=== PATIENT | male | born 1995 | race Caucasian/White ===

== ENCOUNTER 2017-08-11 14:44 | Inpatient (IN) | payer BC, OTHER ==
[~2017-08-11] VITALS: Ht 193 cm; Wt 86.2 kg
[2017-08-11] MEDS ORDERED: diphenhydrAMINE 50 MG CAPSULE PO PRN (16:30)
[2017-08-11] MEDS ORDERED: MIRALAX 17 GM POWD.PACK PO PRN (16:30)
[2017-08-11] MEDS ORDERED: DICYCLOMINE HCL 20 MG TABLET PO PRN (16:30)
[2017-08-11] MEDS ORDERED: LORAZEPAM 2 MG/1 ML VIAL IM PRN (16:30)
[2017-08-11] MEDS ORDERED: ONDANSETRON ODT 4 MG TAB.RAPDIS SL PRN (16:30)
[2017-08-11] MEDS ORDERED: THIAMINE HCL 200 MG/2 ML VIAL IM ONE (16:30)
[2017-08-11] MEDS ORDERED: LORAZEPAM 1 MG TABLET PO PRN ×2 (16:30)
[2017-08-11] MEDS ORDERED: ONDANSETRON 4 MG/2 ML VIAL IM PRN (16:30)
[2017-08-11] MEDS ORDERED: MAG HYDROX/AL HYDROX/SIMETH 30 ML LIQUID UDC PO PRN (16:30)
[2017-08-11] MEDS ORDERED: BUPRENORPHINE HCL 2 MG TAB.SUBL SL PRN (16:30)
--- NOTE | 2017-08-11 16:30 | NUR ---
INTAKE ASSESSMENT Received patient in intake. He is AOX4, stable, and ambulatory. Vital signs WNL. Patient reports NKA. Patient reported he had an episode of blackout last night from drinking too much. Patient brought home medications with him. Explained unit protocols and patient verbalized understanding. Will admit patient upon admission to third floor.
[2017-08-11 16:50] VITALS: BP 145/85
--- NOTE | 2017-08-11 17:00 | NUR ---
ADMISSION NOTE Allergy- NKA/NKFA Status-Full code Height 6'4" Weight-190 lb PCP-UNABLE TO RECALL THE NAME Vital Signs- B/P-145/85,HR-112, R-18, TEMP-98.0, SPO2-98%, Pain 0/10 CIWA-4 Patient is a 22 year old male admitted to [facility] to detox center for BENZO/HEROIN/METH dependence under the care of Dr. Martinez. Patient able to provide urine.Thorough body and belonging check done by SPINDLE CARVER. Patient appears anxious and agitated. Patient is cooperative during nursing assessment. Upon admission patient is noted to have a flat affect, appears intoxicated, but cooperative with the admission process. Patient denies chest pain or SOB. Lung sounds clear with no cough noted. Bowel sounds present in all 4 quadrants. BUE and BLE noted WNL with no edema present. Skin check done with no significant findings. Pt reported PMH of anxiety and depression, Insomnia, Bipolar. Pt refused PNA/FLU vaccine. He brought in home medications. Patient denies SI/HI. Pt is AOx4. Patient reports 3 months of sobriety from March 2017 to May 2017. Pt's current s/s of withdrawal are anxiety, agitation. Patient reported substance abuse history as: 1.ETOH( VODKA/WIN SHANNAN)Pt reported drinking 750ml PO daily for past 8 years. Last drink was 750ml PO on 08/10/17 at 2200. 2.HEROIN- Patient reported using 1 to 2 gm daily for the past 1 year.Last used 1GM 08/11/17 at 0700. 3.METH-Patient reported snorting unspecified amount for past 1 year,last used was one line at 08/11/17. Educated patient regarding unit policies and protocols, patient verbalized understanding. Patient oriented to unit by SPINDLE CARVER. Fall and seizure precautions in place. Safety measures in place, Call light within reach. Will cont to monitor. Addendum: 08/11/17 at 1829 abdirashid BOWSER LVN HEROIN CLARICE IV
[2017-08-11] MEDS ORDERED: QUET100T PO (17:19)
[2017-08-11] MEDS ORDERED: QUET300T2 PO (17:19)
[2017-08-11] MEDS ORDERED: OLAN10TA3 PO (17:19)
[2017-08-11] MEDS ORDERED: SERT100T12 PO (17:19)
[2017-08-11] MEDS ORDERED: TRAZ-147 PO (17:19)
[2017-08-11] MEDS ORDERED: TRAZ-144 PO (17:19)
[2017-08-11] MEDS ORDERED: PROP20TA22 PO (17:19)
[2017-08-11] MEDS ORDERED: OLAN5TAB3 PO (17:19)
[2017-08-11 17:33] LABS: *AMPHETAMINE, URINE NEGATIVE (NEGATIVE); *BARBITURATE, URINE NEGATIVE (NEGATIVE); *CANNABINOID, URINE NEGATIVE (NEGATIVE); *COCCAINE, URINE NEGATIVE (NEGATIVE); *OPIATE, URINE POSITIVE (NEGATIVE); *PHENCYCLIDINE SCREEN,URINE NEGATIVE (NEGATIVE)
[2017-08-11] MEDS: METHOCARBAMOL 750 MG TABLET PO PRN (18:32)
[2017-08-11] MEDS: IBUPROFEN 600 MG TABLET PO PRN (18:32)
--- NOTE | 2017-08-11 18:32 | NUR ---
PRN MOTRIN/ROBAXIN Patient c/o of body ache 5/10 and myalgia. PRN Motrin 600mg Po, Robaxin 750mg Po given as ordered. Will cont to monitor and reassess the pt.
--- NOTE | 2017-08-11 18:58 | NUR ---
START OF SHIFT NOTE: 22 year old male presented in [facility] for Alcohol: "Vodka and Whisky", Opioid: "Heroin via IV", and Methamphetamine dependence. Patient remains compliant with PRN medications and diet regime per day shift nurse's report. Patient reports NKA , is on Regular diet, Full Code, Fall and Seizures Precautions. Patient denies history of seizures. PMH: Anxiety, Depression, Insomnia, and Bipolar disorder. Upon endorsement patient is alert and oriented x4. COWS 5, CIWA 7. Patient c/o anxiety, agitation, depression, nervousness, restlessness, sweating, and tremors that can be felt. VSWNL. Respirations are unlabored and even. Lungs Sounds are clear throughout. Patient denies cough, SOB and chest pain. Heart rate is regular. Abdomen is soft and non-tender. Bowel Sounds are active in all four quadrants. Skin is intact, warm and dry to touch. Encouraged fluids as tolerated. Safety measures in place: Call light within reach, bed is locked and lowest positions, padded bed rails up x2. Patient endorsed by day shift nurse. Report received. Will continue to monitor closely.
--- NOTE | 2017-08-11 18:58 | NUR ---
END OF SHIFT NOTE Patient newly admitted for ETOH/HEROIN/METH dependence. During shift pt presented with body aches and myalgia, pt was given PRN Robaxin and Motrin endorsed to night nurse to reassess the pt. Vital signs WNL. Encourage Po fluids as tolerated. Pt medication compliant and tolerated well. Last CIWA score was 4. All safety measures in place, call light within reach. Patient endorsed to night nurse in stable condition.
[2017-08-11 19:25] LABS: BASOPHILS % (AUTO) 0.6 % (0.0-2.0); EOSINOPHILS # (AUTO) 0.2 K/uL (0.0-0.7); EOSINOPHILS % (AUTO) 3.7 % (0.0-7.0); HEMATOCRIT 39.4 % (36.7-47.1); LYMPHOCYTES # (AUTO) 2.2 K/uL (20.0-40.0); LYMPHOCYTES % (AUTO) 32.9 % (20.5-51.5); MEAN CORPUSCULAR HGB CONC 35 g/dL (32.5-36.3); MEAN CORPUSCULAR VOLUME 87.6 fL (73.0-96.2); MONOCYTES # (AUTO) 0.6 K/uL (2.0-10.0); NEUTROPHILS # (AUTO) 3.5 K/uL (1.8-8.9); NEUTROPHILS % (AUTO) 53.8 % (38.5-71.5); PLATELET COUNT (AUTO) 276 K/uL (152-348); WHITE BLOOD COUNT (AUTO) 6.5 K/uL (3.6-10.2)
[2017-08-11 19:31] LABS: ALANINE AMINOTRANSFERASE 56 U/L (16-63); ALKALINE PHOSPHATASE 93 U/L (50-136); AMYLASE 45 U/L (25-115); ASPARTATE AMINOTRANSFERASE 32 U/L (15-37); BILIRUBIN,TOTAL 0.7 mg/dL (0.2-1.0); CARBON DIOXIDE 30 mmol/L (21-32); CHLORIDE 101 mmol/L (98-107); CREATININE 1.1 mg/dL (0.6-1.3); GLUCOSE 142 mg/dL (74-106); MAGNESIUM 1.8 mg/dL (1.8-2.4); TOTAL PROTEIN, SERUM 7.2 g/dL (6.4-8.2); UREA NITROGEN, BLOOD 8 mg/dL (7-18)
[2017-08-11 19:32] LABS: ETHANOL < 3 MG/DL (0-0)
--- NOTE | 2017-08-11 19:32 | NUR ---
RE-ASSESSMENT Patient is sleeping. RR 15. Respirations even and unlabored. PRN Motrin 600 mg 1 tab PO and PRN Robaxin 750 mg 1 tab PO administrated @1832 by day shift nurse were effective. All needs met. Safety measures on place. Call light within reach, bed in lowest position and locked, padded rails up bilaterally rails up bilaterally. Will continue to monitor closely.
[2017-08-11] MEDS: LORAZEPAM 1 MG TABLET PO SCH ×2 (19:46→22:26)
[2017-08-11 20:00] VITALS: BP 123/67
[2017-08-11] MEDS ORDERED: LORAZEPAM 1 MG TABLET ONE ×3 (20:01→22:38)
[2017-08-11] MEDS ORDERED: POTASSIUM CHLORIDE 20 MEQ TAB.PRT.SR PO ONE (20:15)
[2017-08-11] MEDS: GABAPENTIN 300 MG CAPSULE PO SCH (20:24)
--- NOTE | 2017-08-11 20:24 | NUR ---
J-DUR 40 MEQ 2 TAB PO ADMINISTRATED FOR POTASSIUM LEVEL 3.0 ORDERED. Addendum: 08/13/17 at 2126 by TIMOTHY MILLER RN LILIAN
[2017-08-11] MEDS ORDERED: POTASSIUM CHLORIDE 20 MEQ TAB.PRT.SR ONE (20:32)
[2017-08-11] MEDS ORDERED: GABAPENTIN 300 MG CAPSULE ONE (20:32)
[2017-08-11] MEDS ORDERED: QUETIAPINE FUMARATE 200 MG TABLET PO ONE (22:30)
[2017-08-11] MEDS ORDERED: QUETIAPINE FUMARATE 200 MG TABLET ONE (22:40)
--- NOTE | 2017-08-11 22:41 | NUR ---
SEROQUEL 200 MG 1 TAB PO ADMINISTRATED ONCE ORDERED. PATIENT TOLERATED WELL. ALL NEEDS MET. SAFETY MEASURES IN PLACE. CALL LIGHT WITHIN REACH, BED IN THE LOWEST POSITION, AND LOCKED, PADDED BED RAILS UP X2. WILL TO CONTINUE TO MONITOR CLOSELY.
--- NOTE | 2017-08-11 23:41 | NUR ---
RE-ASSESSMENT PATIENT IS SLEEPING. SEROQUEL 200 MG 1 TAB PO ADMINISTRATED @2241 FOR INSOMNIA WAS EFFECTIVE. ALL NEEDS MET. SAFETY MEASURES IN PLACE. WILL TO MONITOR CLOSELY.
[2017-08-12] VITALS (7 sets, daily range): BP systolic 134–151; BP diastolic 65–96
--- NOTE | 2017-08-12 07:04 | NUR ---
END OF SHIFT NOTE: Endorsed 22 year old male presented for Alcohol, Opioid, and Methamphetamine dependence, placed on 5 day Ativan and 5 Day Subutex taper: First dosage will today, on 08/12/2017 @0900. Patient remains compliant with treatment, medications and diet regime. Patient reports NKA. Patient is on Regular diet, Full Code, Fall and Seizures Precautions. Patient denies history of seizures. PMH: Anxiety, Depression, Insomnia, and Bipolar disorder. Upon endorsement patient is alert and oriented x4. Last COWS 7, CIWA 4 @0400. Patient presented with following signs of withdrawal: anxiety, agitation, nervousness, restlessness, tremors that can be felt, nasal stuff, sweating, restless legs, insomnia and fatigue. Patient denies SI/HI. Last VS @0400: T: 98.1, HR: 92, RR: 18 , RA O2SAT 98%, BP: 136/65, pain level: "0/10". Respirations unlabored and even. Patient denies cough, SOB and chest pain. Skin is intact, warm and dry to touch. No PRN administrated last softlines supervisor. Patient slept 10 hours, intake 300 ml, voided x1. Encouraged fluids intake as tolerated. Encouraged to attend groups activities. All needs met. Safety measures on place. Call light within reach, bed in lowest position and locked, bed rails up bilaterally. Patient endorsed to day shift nurse. Report given.
--- NOTE | 2017-08-12 07:55 | NUR ---
START OF SHIFT NOTE Received report from night nurse, 22 year old male admitted for ETOH/Heroin/Meth dependence. Patient has PMH of Anxiety, Depression, Insomnia, Bipolar. Per endorsement pt did not receive any PRN'S, slept for 10 hours, last CIWA-4, COWS-7. Patient received awake, alert and oriented x4. Patient was educated regarding plan of care for the day and medication regimen. Safety measures in place. Call light with in reach. Will continue to monitor.
[2017-08-12] MEDS: BUPRENORPHINE HCL 2 MG TAB.SUBL SL SCH ×3 (08:47→20:23)
[2017-08-12] MEDS: FOLIC ACID 1 MG TABLET PO SCH (08:47)
[2017-08-12] MEDS: LORAZEPAM 1 MG TABLET PO SCH ×3 (08:47→20:16)
[2017-08-12] MEDS: THIAMINE HCL 100 MG TABLET PO SCH (08:47)
[2017-08-12] MEDS: GABAPENTIN 300 MG CAPSULE PO SCH ×2 (08:47→20:16)
[2017-08-12] MEDS: CLONIDINE HCL 0.1 MG TABLET PO PRN ×2 (08:48→19:10)
--- NOTE | 2017-08-12 08:48 | NUR ---
PRN CLONIDINE Patient noted with high blood pressure 151/96, PRN Clonidine 0.1mg Po given as ordered. Will cont to monitor and reassess.
[2017-08-12] MEDS: MULTIVITAMINS,THERAPEUTIC TABLET PO SCH (08:52)
[2017-08-12] MEDS ORDERED: TUBERCULIN,PURIF.PROT.DERIV. 5 TU/0.1 ML TEST ID ONE (09:00)
--- NOTE | 2017-08-12 09:00 | NUR ---
NEW ORDER patient was seen and evaluated by Psychiatrist with new order of Zyprexa 5mg PO and Zoloft 100mg PO. medication was administered as ordered. Patient tolerated well.
[2017-08-12] MEDS: SERTRALINE HCL 100 MG TABLET PO SCH (09:07)
[2017-08-12] MEDS: OLANZAPINE 5 MG TABLET PO SCH ×2 (09:07→16:07)
[2017-08-12] MEDS: NICOTINE POLACRILEX 4 MG GUM-PK OF TEN BC PRN (09:42)
--- NOTE | 2017-08-12 09:42 | NUR ---
PRN NICOTINE GUM Patient reported having Nicotine craving, PRN Nicotine gum 4mg Po given as ordered. Will cont to monitor and reassess.
--- NOTE | 2017-08-12 09:48 | NUR ---
CLONIDINE REASSESSMENT B/P noted 138/68, Clonidine was effective.
--- NOTE | 2017-08-12 10:34 | NUR ---
Therapist prompted client about group times. Client stated he will start attending tomorrow when he feels better.
[2017-08-12] MEDS: IBUPROFEN 600 MG TABLET PO PRN (10:40)
[2017-08-12] MEDS: METHOCARBAMOL 750 MG TABLET PO PRN ×2 (10:40→20:23)
--- NOTE | 2017-08-12 10:40 | NUR ---
PRN MOTRIN/ROBAXIN Patient c/o of myalgia/ and general body aches 5/10, PRN Motrin 600mg PO, Robaxin 750mg PO given as ordered. Will cont to monitor and reassess.
--- NOTE | 2017-08-12 10:42 | NUR ---
NICOTINE REASSESSMENT Per pt Nicotine gum was effective nicotine craving subside.
--- NOTE | 2017-08-12 13:53 | NUR ---
1:1 initiated Pt noted to be unsteady and reports mild visual and auditory hallucinations. Pt states he knows it is not real, but hears people talking to him, and has a distorted perception of vision. Pt is on a 1:1 for safety and continues on ordered medications.
--- NOTE | 2017-08-12 15:45 | NUR ---
PRN ATIVAN Pt has increased s/s of withdrawals. Pt reports visual and auditory hallucinations, pt reports being lightheaded, has intermittent sweating, increased anxiety and agitation. CIWA is 10. PRN 2mg Ativan administered as ordered. Will reassess.
--- NOTE | 2017-08-12 16:45 | NUR ---
ATIVAN REASSESSMENT Per pt medication was effective in reducing his s/s of withdrawal, CIWA score noted 6.
[2017-08-12] MEDS ORDERED: LORAZEPAM 1 MG TABLET PO PRN ×2 (17:15)
--- NOTE | 2017-08-12 18:50 | NUR ---
START OF SHIFT NOTE: Patient is a 22 year old male presented in [facility] for Alcohol, Opioid, and Methamphetamine dependence, continues 5 Day Ativan and 5 Day Subutex taper. He is tolerated well without ASE. Patient remains compliant with PRN medications and diet regime per day shift nurse's report. Patient reports NKA , is on Regular diet, Full Code, Fall and Seizures Precautions. Patient denies history of seizures. PMH: Anxiety, Depression, Insomnia, and Bipolar disorder. Patient is alert and oriented x4. COWS 7, CIWA 5. Patient c/o increased anxiety, agitation, depression, nervousness, restlessness, sweating, nose stuff, and tremors that can be felt. Respirations are unlabored and even. Lungs Sounds are clear throughout. Patient denies cough, SOB and chest pain. Heart rate is regular. Abdomen is soft and non-tender. Bowel Sounds are active in all four quadrants. Skin is intact, warm and dry to touch. Encouraged fluids as tolerated. PRN Medications was effective per day shift nurse report. All needs met. 1:1 sitter at bedside for safety, as ordered. Safety measures in place: Call light within reach, bed is locked and lowest positions, padded bed rails up x2. Patient endorsed by day shift nurse. Report received. Will continue to monitor closely.
--- NOTE | 2017-08-12 18:50 | NUR ---
END OF SHIFT 22 year old male continues on taper. Pt started having episodes of visual and auditory hallucinations, pt has an unsteady gait. Pt is on a 1:1 for safety. PRN Ativan 2mg administered and effective. Most recent CIWA 6 and COWS are 5. PRN Robaxin and Motrin administered for muscle aches and general body aches. Pt reports BMx1. Pt has an adequate appetite. Pt excused from group due to increased s/s of withdrawals and discomfort. All needs met at this time. Safety measures in place, manager shift nurse to continue monitoring.
--- NOTE | 2017-08-12 19:10 | NUR ---
PRN CLONIDINE 0.1 MG 1 TAB PO ADMINISTRATION PRN Clonidine 0.1 mg 1 tab. PO administrated for BP:151/92 with full glass of water as ordered. Patient tolerated well. All needs met. 1:1 sitter at bedside as ordered for safety. Safety measures on place. Call light within reach, bed in lowest position and locked, padded rails up bilaterally rails up bilaterally. Will continue to monitor closely.
--- NOTE | 2017-08-12 20:10 | NUR ---
RE-ASSESSMENT BP decreased from 151/92 @1909 to 148/82 @2009. PRN Clonidine 0.1mg 1 tab PO administrated @1909 was effective. All needs met. 1:1 sitter at bedside for safety as ordered. Safety measures on place. Call light within reach, bed in lowest position and locked, padded rails up bilaterally. Will continue to monitor closely.
[2017-08-12] MEDS: QUETIAPINE FUMARATE 200 MG TABLET PO SCH (20:15)
--- NOTE | 2017-08-12 20:23 | NUR ---
PRN ROBAXIN 750 MG 1 TAB PO ADMINISTRATION PRN Robaxin 750 mg 1 tab PO administrated for myalgia with full glass of water as ordered. Patient tolerated well. All needs met. 1:1 sitter at bedside for safety as ordered. Safety measures on place. Call light within reach, bed in lowest position and locked, padded rails up bilaterally. Will continue to monitor closely.
--- NOTE | 2017-08-12 21:23 | NUR ---
RE-ASSESSMENT Patient is sleeping. RR 17. Respirations even and unlabored. PRN Robaxin 750 mg 1 tab PO administrated for myalgia @2022 was effective. All needs met. 1:1 sitter at bedside for safety as ordered. Safety measures on place. Call light within reach, bed in lowest position and locked, padded rails up bilaterally. Will continue to monitor closely.
[2017-08-13] VITALS (7 sets, daily range): BP systolic 126–188; BP diastolic 81–99
[2017-08-13] MEDS: CLONIDINE HCL 0.1 MG TABLET PO PRN ×3 (01:08→20:02)
--- NOTE | 2017-08-13 01:08 | NUR ---
PRN CLONIDINE 0.1 MG 1 TAB PO ADMINISTRATION PRN Clonidine 0.1 mg 1 tab. PO administrated for BP:155/92 with full glass of water as ordered. Patient tolerated well. All needs met. 1:1 sitter at bedside as ordered for safety. Safety measures on place. Call light within reach, bed in lowest position and locked, padded rails up bilaterally rails up bilaterally. Will continue to monitor closely.
--- NOTE | 2017-08-13 02:08 | NUR ---
RE-ASSESSMENT BP decreased from 155/92 @0108 to 136/83 @0208. PRN Clonidine 0.1mg 1 tab PO administrated @0108 was effective. All needs met. 1:1 sitter at bedside for safety as ordered. Safety measures on place. Call light within reach, bed in lowest position and locked, padded rails up bilaterally. Will continue to monitor closely.
--- NOTE | 2017-08-13 07:13 | NUR ---
END OF SHIFT NOTE: Endorsed 22 year old male admitted for Alcohol, Opioid, and Methamphetamine dependence, continues 5 Day Ativan and 5 Day Subutex taper. Patient tolerated well without ASE. Patient remains compliant with treatment, medications and diet regime. Patient reports NKA. Patient is on Regular diet, Full Code, Fall and Seizures Precautions. Patient denies history of seizures. PMH: Anxiety, Depression, Insomnia, and Bipolar disorder. Last COWS 9, CIWA 4 @0400. Patient presented with following signs of withdrawal : anxiety, agitation, nervousness, restlessness, tremors that can be felt, nasal stuff, sweating, restless legs, insomnia and fatigue. Patient denies SI/HI. Last VS @0400: T: 97.9, HR: 109, RR: 16 , RA O2SAT 97%, BP: 126/81, pain level: "0/10". Respirations unlabored and even. Skin is intact, warm and dry to touch. PRN Clonidine 0.1 mg 1 tab. PO administrated for BP:151/92 @1910, PRN Robaxin 750 mg 1 tab PO administrated for myalgia @2022, and PRN Clonidine 0.1 mg 1 tab. PO administrated for BP:155/92 @0108 were effective. Patient slept 7 hours, intake 1,105 ml, voided x2. Encouraged fluids intake as tolerated. All needs met. 1:1 sitter at bedside for safety as ordered. Safety measures on place. Call light within reach, bed in lowest position and locked, padded rails up bilaterally.. Patient endorsed to day shift nurse. Report given.
--- NOTE | 2017-08-13 07:49 | NUR ---
BEGINNING OF SHIFT Patient endorsement report received from night stocker nurse, all pertinent information discussed. patient is a 22 year old male with admitting Dx: opiate/etoh dependence, and substance use of methamphetamine. Patient with ongoing 5 day Ativan and 5 day Subutex taper as ordered, patient is scheduled to begin day 2 of taper, will monitor closely. Per night stocker patient received PRN: clonidine x2 and Robaxin, medication were effective. patient slept for 7 hours. Patient with last cow score of: 9 and last ciwa score of: 4. Patient with 1:1 sitter at bedside for safety precautions. will monitor closely during shift. Call light kept with in reach. Patient received in bed awake, educated regarding plan of care for the day and medication regimen with good verbal understanding, will continue to monitor.
[2017-08-13] MEDS: OLANZAPINE 5 MG TABLET PO SCH ×2 (08:59→16:42)
[2017-08-13] MEDS: GABAPENTIN 300 MG CAPSULE PO SCH ×3 (08:59→20:04)
[2017-08-13] MEDS: METHOCARBAMOL 750 MG TABLET PO PRN ×2 (08:59→20:02)
[2017-08-13] MEDS: THIAMINE HCL 100 MG TABLET PO SCH (08:59)
[2017-08-13] MEDS: MULTIVITAMINS,THERAPEUTIC TABLET PO SCH (08:59)
[2017-08-13] MEDS: SERTRALINE HCL 100 MG TABLET PO SCH (08:59)
[2017-08-13] MEDS: FOLIC ACID 1 MG TABLET PO SCH (08:59)
[2017-08-13] MEDS: LORAZEPAM 1 MG TABLET PO SCH ×3 (08:59→16:42)
--- NOTE | 2017-08-13 08:59 | NUR ---
PRN ROBAXIN Patient c/o muscle aches, provided with non pharmacological interventions with no relief, administered robaxin as ordered, for pain level of 6/10, will monitor effectiveness of medication
[2017-08-13] MEDS ORDERED: BUPRENORPHINE HCL 2 MG TAB.SUBL SL SCH ×2 (09:00→15:00)
[2017-08-13] MEDS ORDERED: LORAZEPAM 1 MG TABLET PO SCH ×2 (09:00→21:00)
--- NOTE | 2017-08-13 09:59 | NUR ---
ROBAXIN REASSESSMENT Patient reports medication effective, current pain level is 2/10, tolerable as per patient, will continue to monitor.
[2017-08-13] MEDS ORDERED: HYDROXYZINE PAMOATE 25 MG CAPSULE PO PRN (11:15)
[2017-08-13 12:11] LABS: HEPATITIS B SURFACE AG Negative (Negative)
[2017-08-13] MEDS: BUPRENORPHINE HCL 2 MG TAB.SUBL SL SCH ×3 (13:12→20:02)
[2017-08-13] MEDS: DOCUSATE SODIUM 250 MG CAPSULE PO SCH (13:14)
--- NOTE | 2017-08-13 13:15 | NUR ---
PRN CLONIDINE Patient noted with bp: 178/95 heart rate: 106, Administered Clonidine as ordered, will monitor effectiveness of medication.
--- NOTE | 2017-08-13 14:15 | NUR ---
CLONIDINE REASSESSMENT Medication effective, decrease in BP, current BP: 145/88 heart rate: 92, will continue to monitor.
--- NOTE | 2017-08-13 18:43 | NUR ---
START OF SHIFT NOTE: 22 year old male admitted for Alcohol, Opioid, and Methamphetamine dependence, continues 5 Day Ativan and 5 Day Subutex taper, which tolerated well without ASE. Patient remains compliant with PRN medications and diet regime . Patient reports NKA , is on Regular diet, Full Code, Fall and Seizures Precautions. Patient denies history of seizures. Patient is alert and oriented x4. COWS 12, CIWA 10. Patient c/o anxiety, agitation, nervousness, restlessness, sweating, body aches, nose stuff, and tremors that can be felt. Patient denies SI/HI now. PRN Medications were effective per day shift nurse's report. Respirations are unlabored and even. Skin is intact, warm and dry to touch. Encouraged fluids as tolerated. PRN Medications was effective per day shift nurse report. All needs met. 1:1 sitter at bedside for safety, as ordered. Safety measures in place: Call light within reach, bed is locked and lowest positions, padded bed rails up x2. Patient endorsed by day shift nurse. Report received. Will continue to monitor closely.
--- NOTE | 2017-08-13 18:43 | NUR ---
END OF SHIFT Patient alert and oriented x4, during shift. compliant with therapeutic plan of care. Patient continues on 5 day Ativan and 5 day Subutex taper as ordered, well tolerated, patient currently with ongoing day 2 of tapers, well tolerated, no ASE noted. Patient with admitting Dx: etoh/opiate dependence. continues with 1:1 for safety precautions. Patient noted with improved gait. No episodes of auditory/visual hallucinations noted during shift. Detox medication effective at reducing withdrawal symptoms. 0900 COW: 13/CIWA: 8. 1300 COW: 14 CIWA: 8; 1700 COW:8CIWA:5. Patient received PRN: Clonidine, and Robaxin, medications were effective. Patient encouraged adequate PO fluid intake as tolerated. Encouraged to attend group therapies/sessions to learn new coping skills to prevent relapse. Patient Denies any SI/HI. Safety measures in place. call light kept with in reach. patient endorsed to night clerk nurse, all pertinent information discussed.
--- NOTE | 2017-08-13 20:02 | NUR ---
PRN CLONIDINE 0.1 MG 1 TAB PO ADMINISTRATION PRN Clonidine 0.1 mg 1 tab. PO administrated for BP:188/99 with full glass of water as ordered. Patient tolerated well. All needs met. 1:1 sitter at bedside as ordered for safety. Safety measures on place. Call light within reach, bed in lowest position and locked, padded rails up bilaterally rails up bilaterally. Will continue to monitor closely.
[2017-08-13] MEDS: QUETIAPINE FUMARATE 200 MG TABLET PO SCH (20:03)
--- NOTE | 2017-08-13 21:02 | NUR ---
RE-ASSESSMENT Patient is sleeping. RR 17. Respirations even and unlabored. PRN Robaxin 750 mg 1 tab PO administrated for myalgia @2022 was effective. All needs met. 1:1 sitter at bedside for safety as ordered. Safety measures on place. Call light within reach, bed in lowest position and locked, padded rails up bilaterally. Will continue to monitor closely. Addendum: 08/13/17 at 2136 by TIMOTHY MILLER RN PRN Robaxin 750 mg 1 tab PO administrated for myalgia @2001 was effective.
--- NOTE | 2017-08-13 21:02 | NUR ---
RE-ASSESSMENT BP DECREASED FROM 188/99 TO 143/88. PRN CLONIDINE 0.1 MG 1 TAB PO WAS EFFECTIVE.
[2017-08-14] VITALS (9 sets, daily range): BP systolic 111–167; BP diastolic 68–101
[2017-08-14] MEDS ORDERED: LORAZEPAM 1 MG TABLET PO ONE ×2 (00:45→22:15)
--- NOTE | 2017-08-14 00:51 | NUR ---
GENERALIZED BODY ACHES PAIN LEVEL "8/10".ATIVAN 2 MG 2 TAB ADMINISTRATED FOR CIWA 13.
--- NOTE | 2017-08-14 00:51 | NUR ---
ATIVAN 2 MG 2 TAB PO ADMINISTRATED FOR CIWA 13 ONCE ORDERED. ALL NEEDS MET. 1:1 SITTER AT BEDSIDE. SAFETY MEASURES IN PLACE: CALL LIGHT WITHIN REACH, BED IN THE LOWEST PSITION, AND LOCKED, PADDED BED RAILS UP X2. WILL CONTINUE TO MONITOR CLOSELY.
[2017-08-14] MEDS ORDERED: LORAZEPAM 1 MG TABLET ONE ×2 (01:04→22:22)
--- NOTE | 2017-08-14 01:51 | NUR ---
RE-ASSESSMENT VS: BP 128/84, HR: 113, RR: 17, RA O2SAT: 98%, pain level"0/10". CIWA 8. Ativan 2 mg 2 tab PO ordered once was effective. All needs met. 1:1 sitter at bedside for safety, as ordered. Safety measures in place: Call light within reach, bed is locked and lowest positions, padded bed rails up x2. Will continue to monitor closely.
[2017-08-14] MEDS: CLONIDINE HCL 0.1 MG TABLET PO PRN ×2 (05:05→23:05)
--- NOTE | 2017-08-14 05:05 | NUR ---
PRN CLONIDINE 0.1 MG 1 TAB PO ADMINISTRATION PRN Clonidine 0.1 mg 1 tab. PO administrated for BP:154/86 with full glass of water as ordered. Patient tolerated well. All needs met. 1:1 sitter at bedside as ordered for safety. Safety measures on place. Call light within reach, bed in lowest position and locked, padded rails up bilaterally rails up bilaterally. Will continue to monitor closely.
--- NOTE | 2017-08-14 06:05 | NUR ---
RE-ASSESSMENT BP decreased from 154/86 @0505 to 144/95 @0605. PRN Clonidine 0.1mg 1 tab PO administrated @0505 was effective. All needs met. 1:1 sitter at bedside for safety as ordered. Safety measures on place. Call light within reach, bed in lowest position and locked, padded rails up bilaterally. Will continue to monitor closely.
--- NOTE | 2017-08-14 06:58 | NUR ---
END OF SHIFT NOTE: Endorsed 22 year old male admitted for Alcohol, Opioid, and Methamphetamine dependence, continues 5 Day Ativan and 5 Day Subutex taper. Patient tolerated well without ASE. Patient remains compliant with treatment, medications and diet regime. Patient reports NKA. Patient is on Regular diet, Full Code, Fall and Seizures Precautions. Patient denies history of seizures. Last COWS 9, CIWA 5 @0400. Patient presented with anxiety, agitation, nervousness, restlessness, tremors that can be felt, nasal stuff, sweating, restless legs, insomnia and fatigue. Patient denies SI/HI. Respirations unlabored and even. Skin is intact, warm and dry to touch. PRN Clonidine 0.1 mg 1 tab. PO administrated for BP:188/99 @2001, PRN Robaxin 750 mg 1 tab PO administrated for myalgia @2001, Ativan 2 mg 2 tab PO ordered once for CIWA 13, and PRN Clonidine 0.1 mg 1 tab. PO administrated for BP 154/86 @0505 were effective. Patient slept 8 hours, intake 1,600 ml, voided x3. Encouraged fluids intake as tolerated. Encouraged to attend groups activities. All needs met. 1:1 sitter at bedside for safety as ordered. Safety measures on place. Call light within reach, bed in lowest position and locked, padded rails up bilaterally. Patient endorsed to day shift nurse. Report given.
--- NOTE | 2017-08-14 07:30 | NUR ---
START OF SHIFT Pt 22 y/o male admitted for etoh/ meth/heroin dependence. Pt received in room on bed with eyes closed resting, but easily arousable to name. Pt with 1:1 sitter to monitor for safety. Pt alert and oriented to name, place, and time. Perrla. Skin warm and moist to touch. Bilateral hand tremors noted. Respirations even and unlabored. It was reported that pt slept for 8 hours last night. Bed on lowest position with side rails x 2 up for safety. Call light within reach. No distress noted at this time.
[2017-08-14] MEDS: SERTRALINE HCL 100 MG TABLET PO SCH (08:20)
[2017-08-14] MEDS: GABAPENTIN 300 MG CAPSULE PO SCH ×2 (08:20→20:00)
[2017-08-14] MEDS: OLANZAPINE 5 MG TABLET PO SCH ×2 (08:20→16:04)
[2017-08-14] MEDS: MULTIVITAMINS,THERAPEUTIC TABLET PO SCH (08:20)
[2017-08-14] MEDS: BUPRENORPHINE HCL 2 MG TAB.SUBL SL SCH ×4 (08:20→20:01)
[2017-08-14] MEDS: DOCUSATE SODIUM 250 MG CAPSULE PO SCH (08:21)
[2017-08-14] MEDS: FOLIC ACID 1 MG TABLET PO SCH (08:21)
[2017-08-14] MEDS: THIAMINE HCL 100 MG TABLET PO SCH (08:21)
[2017-08-14] MEDS ORDERED: BUPRENORPHINE HCL 2 MG TAB.SUBL SL SCH (09:00)
[2017-08-14] MEDS ORDERED: LORAZEPAM 1 MG TABLET PO SCH ×3 (09:00→21:00)
[2017-08-14] MEDS: METHOCARBAMOL 750 MG TABLET PO PRN ×2 (09:01→21:23)
[2017-08-14] MEDS: IBUPROFEN 600 MG TABLET PO PRN (09:01)
--- NOTE | 2017-08-14 09:11 | NUR ---
PRN Pt states has generalized body aches 6/10. Robaxin po prn per MD order given and tolerated well.
--- NOTE | 2017-08-14 09:13 | NUR ---
PRN Pt states has generalized body pain 5/10. Motrin po prn per MD order given and tolerated well.
--- NOTE | 2017-08-14 10:11 | NUR ---
BON SAHA Pt observed sitting in room and states body aches 10/18.
--- NOTE | 2017-08-14 10:13 | NUR ---
PRN EVAL Pt observed sitting in room and states pain is 3/10.
[2017-08-14] MEDS: NICOTINE 14 MG/24HR PATCH TD PRN (10:48)
[2017-08-14] MEDS: NICOTINE POLACRILEX 4 MG GUM-PK OF TEN BC PRN ×3 (10:48→16:03)
--- NOTE | 2017-08-14 10:53 | NUR ---
PRN Pt states needs help with smoking cessation and has a nicotine craving. Nicotine patch prn per MD order given and tolerated well.
--- NOTE | 2017-08-14 10:54 | NUR ---
PRN Pt states needs something for nicotine craving. Nicotine gum prn per MD order given and tolerated well.
--- NOTE | 2017-08-14 11:54 | NUR ---
PRN EVAL pt states nicotine gum effective.
[2017-08-14] MEDS: LORAZEPAM 1 MG TABLET PO SCH ×2 (12:10→16:03)
--- NOTE | 2017-08-14 12:36 | NUR ---
SI assessment Pt states has SI, but denies any plan. Pt states, " I'm not going to do anything."
--- NOTE | 2017-08-14 14:02 | NUR ---
PRN Pt states has nicotine craving. Nicotine gum prn per MD order given and tolerated well.
[2017-08-14] MEDS ORDERED: GABAPENTIN 300 MG CAPSULE PO SCH (15:00)
--- NOTE | 2017-08-14 15:02 | NUR ---
PRN EVAL Pt states nicotine gum effective.
--- NOTE | 2017-08-14 18:53 | NUR ---
END OF SHIFT Pt 22 y/o male admitted for etoh/ meth/ heroin dependence. Pt alert and oriented to name, place, and time. Perrla. Skin warma nd moist to touch. Respirations even and unlabored. Pt with bilateral hand tremors noted. Pt states had episode of chills and sweats throughout the day. Pt also with periods of anxiety/agitation this morning. Pt states has SI with no plan. Pt observed mostly isolative to room throuhout the day. Pt did not attend group actiivty. Pt was seen by MD today. Pt medication compliant and tolerated well. No ASE noted. Bed on lowest position with side rails x2 up for safety. Call light within reach. No distress noted at this time.
--- NOTE | 2017-08-14 19:05 | NUR ---
Start of Shift Patient Received. Patient is in activities room participating in a group meeting. Patient is a 22 year old male admitted on 08/11/17 for ETOH and Opiate Dependence under the care of Dr. Martinez. Patient is continuing on 5 day Ativan and 5 day Subutex tapers. Patient verbalizes no known allergies, wishes to be full code, following a regular diet, placed on fall and seizure precautions, and skin noted intact. Patients past medical history noted as Anxiety, Depression, Insomnia, and Bipolar. Per endorsement, patient was removed from 1:1 no episodes of hallucinations noted. No suicidal ideations verbalized. Patient received PRN Robaxin and Nicotine gum x2 with medications noted to be effective. Last noted COWS 7 and CIWA 4. All needs attended to promptly. Will continue plan of care as ordered.
--- NOTE | 2017-08-14 19:50 | NUR ---
1:1 Sitter Patient verbalizing visual hallucinations, increased anxiety, increased blurred vision, and increased hot and cold sweats. CIWA noted to be 16 and COWS 12. MD made aware. Will administer routine medications as ordered. 1:1 placed for hallucinations and safety. Will continue to monitor.
[2017-08-14] MEDS: CLONIDINE HCL 0.1 MG TABLET PO SCH (20:00)
[2017-08-14] MEDS: QUETIAPINE FUMARATE 200 MG TABLET PO SCH (20:00)
--- NOTE | 2017-08-14 21:26 | NUR ---
PRN Medication Administration Patient noted verbalizing increased muscle spasms in lower back. PRN Robaxin administered. Will continue to monitor.
--- NOTE | 2017-08-14 22:02 | NUR ---
PRN Medication Reassessment patient is able to verbalize muscle spasms had subsided. PRN Robaxin noted to be effective. Will continue to monitor.
[2017-08-14] MEDS: HYDROXYZINE PAMOATE 25 MG CAPSULE PO PRN (23:05)
--- NOTE | 2017-08-14 23:08 | NUR ---
PRN Medication Administration Patient noted awake and verbalizing increased anxiety and agitation. PRN Clonidine and Vistaril administered. Will continue to monitor.
[2017-08-14] MEDS ORDERED: OLANZAPINE 5 MG TABLET PO ONE (23:15)
[2017-08-14] MEDS ORDERED: diphenhydrAMINE 25 MG CAP PO ONE ×2 (23:15→23:34)
--- NOTE | 2017-08-14 23:15 | NUR ---
RN note One-time Zyprexa and Benadryl Patient noted to be increasingly agitated and started to pace on the hallway. Dr. Pabon notified and he ordered Zyprexa 5 mg PO one-time and Benadryl 25 mg PO one-time. Entered at [facility]. Nurse to administer.
[2017-08-14] MEDS ORDERED: OLANZAPINE 5 MG TABLET ONE (23:34)
--- NOTE | 2017-08-15 00:30 | NUR ---
Vitals Refused Patient noted in bed sleeping. Attempted to render vitals and patient verbalized "No Im finally able to sleep. please let me sleep." Risks and benefits explained. Breathing even and non labored. Respirations noted to be 16. Will continue to monitor. Addendum: 08/15/17 at 0324 by ALFREDO QUIROZ LVN Amended: Links added.
--- NOTE | 2017-08-15 04:15 | NUR ---
Vitals Refused Patient noted in bed sleeping. Breathing even and non labored. Patient refused vitals and verbalized "im sleeping." Respirations noted to be 16. Will continue to monitor. Addendum: 08/15/17 at 0515 by ALFREDO QUIROZ LVN Amended: Links added.
--- NOTE | 2017-08-15 07:23 | NUR ---
End of Shift Patient is in bed sleeping. Breathing even and non labored. Patient was admitted for ETOH and Opiate Dependence and continues on a 5 day Ativan and 5 day Subutex tapers. Patient was placed on 1:1 for increased hallucinations and safety. patient was given PRN vistaril, Clonidine, Robaxin, a onetime dose of Zyprexa and onetime dose of Benadryl with all medications noted to be effective. No suicidal ideations verbalized. Last noted COWS 12 and CIWA 16. All needs attended to promptly. Will endorse to continue plan of care as ordered.
--- NOTE | 2017-08-15 07:30 | NUR ---
START OF SHIFT Pt 22 y/o male admitted for etoh/ meth/heroin dependence. Pt received in room on bed with eyes closed resting, but easily arousable to name. Pt with 1:1 sitter to monitor for safety. Pt alert and oriented to name, place, and time. Perrla. Skin warm and moist to touch. Bilateral hand tremors noted. Respirations even and unlabored. Pt appears irritable this morning with pressured speech noted. It was reported that pt slept for 6 hours last night. Bed on lowest position with side rails x 2 up for safety. Call light within reach. No distress noted at this time.
[2017-08-15 09:00] VITALS: BP 135/62
[2017-08-15] MEDS ORDERED: LORAZEPAM 1 MG TABLET PO SCH (09:00)
[2017-08-15] MEDS ORDERED: BUPRENORPHINE HCL 2 MG TAB.SUBL SL SCH (09:00)
[2017-08-15] MEDS: BUPRENORPHINE HCL 2 MG TAB.SUBL SL SCH ×3 (09:31→21:27)
[2017-08-15] MEDS: DOCUSATE SODIUM 250 MG CAPSULE PO SCH (09:31)
[2017-08-15] MEDS: OLANZAPINE 5 MG TABLET PO SCH ×2 (09:31→16:10)
[2017-08-15] MEDS: LORAZEPAM 1 MG TABLET PO SCH ×3 (09:31→21:27)
[2017-08-15] MEDS: SERTRALINE HCL 100 MG TABLET PO SCH (09:31)
[2017-08-15] MEDS: MULTIVITAMINS,THERAPEUTIC TABLET PO SCH (09:31)
[2017-08-15] MEDS: GABAPENTIN 300 MG CAPSULE PO SCH ×3 (09:31→21:27)
[2017-08-15] MEDS: CLONIDINE HCL 0.1 MG TABLET PO SCH ×3 (09:32→21:26)
[2017-08-15] MEDS: THIAMINE HCL 100 MG TABLET PO SCH (09:32)
[2017-08-15] MEDS: METHOCARBAMOL 750 MG TABLET PO PRN (09:35)
[2017-08-15] MEDS: FOLIC ACID 1 MG TABLET PO SCH (09:42)
--- NOTE | 2017-08-15 09:43 | NUR ---
PRN Pt states has body aches 6/10. Robaxin po prn per MD order given and tolerated well.
--- NOTE | 2017-08-15 10:53 | NUR ---
PRN DOMAL Pt observed on bed with eyes closed resting, but easily arousable to name. No c/o body aches at this time.
[2017-08-15 12:00] VITALS: BP 124/65
[2017-08-15] MEDS: ACETAMINOPHEN 325 MG TABLET PO PRN (12:31)
[2017-08-15] MEDS: KETOROLAC TROMETHAMINE 30 MG INJ IM PRN ×2 (12:31→18:59)
--- NOTE | 2017-08-15 12:39 | NUR ---
PRN Pt with c/o right shoulder pain sharp 05/20. Toradol IM prn per MD order given and tolerated well. Addendum: 08/15/17 at 1246 by SEUN PATTEN RN additional Pt also stated, " will the shot make me feel good?."
--- NOTE | 2017-08-15 12:40 | NUR ---
PRN Pt with btvr=363.2. tylenol po prn per MD order given and tolerated well. Addendum: 08/15/17 at 1249 by SEUN PATTEN RN additional When I asked that I need check if the medication was take, pt partially opens mouth and states, " It's just tylenol!". AFter multiple requests, pt opens mouth to check if medication was taken.
--- NOTE | 2017-08-15 13:18 | NUR ---
PRN Pt states has heartburn. Mylanta po prn per MD order given and tolerated well.
--- NOTE | 2017-08-15 13:39 | NUR ---
PRN YIFAN Pt observed on bed with eyes closed resting, but easily arousable to name. No distress noted at this time.
--- NOTE | 2017-08-15 13:40 | NUR ---
PRN EVAL Pt with temp=99.3. made aware with new orders awaiting.
--- NOTE | 2017-08-15 14:18 | NUR ---
BON SAHA Pt denies any heartburn at this time.
[2017-08-15 14:23] LABS: BASOPHILS % (AUTO) 0.3 % (0.0-2.0); EOSINOPHILS # (AUTO) 0.1 K/uL (0.0-0.7); EOSINOPHILS % (AUTO) 1.5 % (0.0-7.0); HEMATOCRIT 40.4 % (36.7-47.1); HEMOGLOBIN 14.1 g/dL (12.5-16.3); LYMPHOCYTES # (AUTO) 1.2 K/uL (20.0-40.0); LYMPHOCYTES % (AUTO) 23.4 % (20.5-51.5); MEAN CORPUSCULAR HEMOGLOBIN 30.6 uug (23.8-33.4); MEAN CORPUSCULAR HGB CONC 35 g/dL (32.5-36.3); MEAN CORPUSCULAR VOLUME 87.9 fL (73.0-96.2); MONOCYTES # (AUTO) 0.3 K/uL (2.0-10.0); MONOCYTES % (AUTO) 5.7 % (0.0-11.0); NEUTROPHILS # (AUTO) 3.5 K/uL (1.8-8.9); NEUTROPHILS % (AUTO) 69.1 % (38.5-71.5); PLATELET COUNT (AUTO) 228 K/uL (152-348)
[2017-08-15 15:06] LABS: CREATININE 1.3 mg/dL (0.6-1.3); MAGNESIUM 1.7 mg/dL (1.8-2.4); POTASSIUM 4.2 mmol/L (3.5-5.1)
[2017-08-15] MEDS: BACLOFEN 10 MG TABLET PO SCH ×2 (15:24→21:27)
[2017-08-15] MEDS: NICOTINE POLACRILEX 4 MG GUM-PK OF TEN BC PRN ×2 (15:25→18:25)
[2017-08-15] MEDS: NICOTINE 14 MG/24HR PATCH TD PRN (15:25)
--- NOTE | 2017-08-15 15:25 | NUR ---
PRN pt with nitocine craving. Nicotine patch prn per MD order given and tolerated well.
--- NOTE | 2017-08-15 15:25 | NUR ---
PRN pt with nitocine craving. Nicotine gum prn per MD order given and tolerated well.
[2017-08-15 16:00] VITALS: BP 128/72
--- NOTE | 2017-08-15 16:25 | NUR ---
PRN YIFAN Pt observed in room on bed with eyes closed resting, but easily arousable to name.
[2017-08-15] MEDS ORDERED: MAGNESIUM OXIDE 400 MG TABLET PO ONE (17:00)
--- NOTE | 2017-08-15 18:27 | NUR ---
PRN pt with nitocine craving. Nicotine gum prn per MD order given and tolerated well.
--- NOTE | 2017-08-15 18:46 | NUR ---
END OF SHIFT Pt 22 y/o male admitted for etoh/ meth/ heroin dependence. Pt alert and oriented to name, place, and time. Perrla. Skin warm and moist to touch. Respirations even and unlabored. Pt with bilateral hand tremors noted. Pt with periods of anxiety/agitation this morning. Pt with sitter 1:1 to monitor for safety. Pt is on droplet isolation. Pt observed mostly isolative to room throuhout the day. Pt did not attend group actiivty. Pt was seen by MD today. Pt medication compliant and tolerated well. No ASE noted. Bed on lowest position with side rails x2 up for safety. Call light within reach. No distress noted at this time.
[2017-08-15] MEDS: HYDROXYZINE PAMOATE 25 MG CAPSULE PO PRN (18:53)
--- NOTE | 2017-08-15 19:04 | NUR ---
PRN Pt anxious, agitated, and restless. Vistaril po prn per MD order given and tolerated well.
--- NOTE | 2017-08-15 19:04 | NUR ---
PRN Pt states has right shoulder pain 8/10 aching. Toradol IM prn per MD order given and tolerated well.
[2017-08-15 20:00] VITALS: BP 133/87
--- NOTE | 2017-08-15 20:00 | NUR ---
START OF SHIFT NOTE RECEIVED REPORT FROM DAY SHIFT NURSE. PATIENT IS A 22 YEAR OLD MALE ADMITTED FOR ETOH/METH/HEROIN DEPENDENCE. PATIENT IS ON 5 DAY SUBUTEX AND 5 DAY ATIVAN TAPER. ON 1:1 WITH LOCK [employer] FOR SAFETY AND ON CONTACT/DROPLET PRECAUTION. INFLUENZA A INFECTION. ON TAMIFLU FOR MANAGEMENT OF INFLUENZA A INFECTION WITH NO ADVERSE REACTION. THROAT CULTURE PENDING, INFLUENZA- (NEGATIVE) AND BLOOD CULTURE PENDING. PATIENT WAS GIVEN PRN TYLENOL FOR TEMP 101.2. LAST TEMP 98.3. PRN TORADOL IM X 2, ROBAXIN , NICOTINE GUM X 2 AND MYLANTA GIVEN. LAST COWS 6 AND CIWA 4. RECEIVED PATIENT IN THE ROOM, PATIENT MODERATELY ANXIOUS, IRRITABLE, RESTLESS AND AGITATED. RELAXATION TECHNIQUE PROVIDED, NO N/V, FLUSHED . ON FALL/SEIZURE PRECAUTION. SAFETY MEASURES IN PLACE. CALL LIGHT IN REACH. WILL CONTINUE TO MONITOR.
--- NOTE | 2017-08-15 20:04 | NUR ---
PRN VISTARIL/TORADOL IM RE-ASSESSMENT PATIENT DENIES ANY PAIN AT THIS TIME. PATIENT ANXIOUS. VISTARIL INEFFECTIVE. WILL CONTINUE TO MONITOR
[2017-08-15] MEDS ORDERED: QUETIAPINE FUMARATE 200 MG TABLET PO SCH (21:00)
[2017-08-15] MEDS: OSELTAMIVIR PHOSPHATE 75 MG CAPSULE PO SCH (21:24)
[2017-08-15] MEDS: QUETIAPINE FUMARATE 25 MG TABLET PO SCH (21:25)
[2017-08-15] MEDS: QUETIAPINE FUMARATE 200 MG TABLET PO SCH (21:28)
--- NOTE | 2017-08-16 | NUR ---
COWS AND CIWA DEFERRED PATIENT SLEEPING. COWS AND CIWA DEFERRED. PATIENT REFUSED VS. RESPIRATION EVEN AND UNLABORED. SAFETY MEASURES IN PLACE. CALL LIGHT IN REACH. WILL CONTINUE TO MONITOR
[2017-08-16] MEDS: LOPERAMIDE HCL 2 MG CAPSULE PO PRN ×4 (00:44→20:14)
[2017-08-16] MEDS: HYDROXYZINE PAMOATE 25 MG CAPSULE PO PRN ×2 (00:44→18:24)
--- NOTE | 2017-08-16 00:44 | NUR ---
PRN VISTARIL /BENTYL AND IMODIUM 4 MG ADMINISTRATION PATIENT C/O ANXIETY AND ABDOMINAL CRAMPING, HAD EPISODE OF DIARRHEA X 1. ENCOURAGE FLUIDS. WILL CONTINUE TO MONITOR
--- NOTE | 2017-08-16 01:44 | NUR ---
PRN EVELYN AND ALMA DELIA RE-ASSESSMENT PATIENT STATE HE'S LESS ANXIOUS AND ABDOMINAL CRAMPING SUBSIDED. WILL CONTINUE TO MONITOR
--- NOTE | 2017-08-16 02:06 | NUR ---
PRN IMODIUM 2 MG ADMINISTRATION PATIENT HAD ANOTHER EPISODE OF DIARRHEA X 1. CONTINUE TO ENCOURAGE FLUIDS. WILL MONITOR FOR EFFECTIVENESS
--- NOTE | 2017-08-16 03:06 | NUR ---
PRN IMODIUM RE-ASSESSMENT PATIENT IN BED WITH EYES CLOSED. RESPIRATION EVEN AND UNLABORED. WILL CONTINUE TO MONITOR.
--- NOTE | 2017-08-16 07:28 | NUR ---
END OF SHIFT NOTE PATIENT SLEPT 6 HOURS. FLUID INTAKE 1,796 ML. VOIDED X 3. BM X 3. . PATIENT CONTINUE ON 5 DAY SUBUTEX AND 5 DAY ATIVAN TAPER WITH NO ADVERSE REACTION . CONTINUE ON 1:1 WITH [employer] RANCH HAND FOR SAFETY AND ON CONTACT/DROPLET PRECAUTION. ON TAMIFLU FOR MANAGEMENT OF INFLUENZA A INFECTION WITH NO ADVERSE REACTION., ENCOURAGE FLUIDS. THROAT CULTURE PENDING, INFLUENZA- (NEGATIVE) AND BLOOD CULTURE PENDING. PATIENT HAD EPISODE OF DIARRHEA, PRN IMODIUM GIVEN. ENCOURAGE FLUIDS. PATIENT WAS ALSO GIVEN PRN VISTARIL AND BENTYL. PATIENT CONTINUE TO REDIRECT DUE TO ANXIETY, AGITATION , IRRITABILITY AND RESTLESSNESS. ON FALL/SEIZURE PRECAUTION. SAFETY MEASURES IN PLACE. CALL LIGHT IN REACH. WILL CONTINUE TO MONITOR. LAST CIWA 9 AND CIWA.
--- NOTE | 2017-08-16 07:40 | NUR ---
Start of shift note; Received report from night nurse. Patient is a 22 year old male admitted on 08/11/17 for ETOH/Opiate/Methamphetamine dependence. Patient was placed on a 5 day Ativan and 5 day Subutex taper, no adverse reactions noted. Patient reported history of anxiety, depression, insomnia, bipolar disorder. Patient slept for 6 hours. Isolation precautions observed at all times. Patient is on 1:1 supervision for safety.All safety measures secured. Will continue to monitor patient.
[2017-08-16 08:00] VITALS: BP 127/88
[2017-08-16] MEDS: SERTRALINE HCL 100 MG TABLET PO SCH (08:52)
[2017-08-16] MEDS: OSELTAMIVIR PHOSPHATE 75 MG CAPSULE PO SCH ×2 (08:52→20:14)
[2017-08-16] MEDS: GABAPENTIN 300 MG CAPSULE PO SCH ×3 (08:52→20:14)
[2017-08-16] MEDS: OLANZAPINE 5 MG TABLET PO SCH ×2 (08:52→17:01)
[2017-08-16] MEDS: THIAMINE HCL 100 MG TABLET PO SCH (08:52)
[2017-08-16] MEDS: BACLOFEN 10 MG TABLET PO SCH ×3 (08:52→20:14)
[2017-08-16] MEDS: MULTIVITAMINS,THERAPEUTIC TABLET PO SCH (08:52)
[2017-08-16] MEDS: LORAZEPAM 1 MG TABLET PO SCH ×2 (08:52→20:14)
[2017-08-16] MEDS: FOLIC ACID 1 MG TABLET PO SCH (08:52)
[2017-08-16] MEDS: CLONIDINE HCL 0.1 MG TABLET PO SCH ×3 (08:53→20:15)
[2017-08-16] MEDS: BUPRENORPHINE HCL 2 MG TAB.SUBL SL SCH ×2 (08:54→20:15)
[2017-08-16] MEDS: DOCUSATE SODIUM 250 MG CAPSULE PO SCH (08:56)
[2017-08-16] MEDS ORDERED: LORAZEPAM 1 MG TABLET PO SCH (09:00)
[2017-08-16] MEDS ORDERED: BUPRENORPHINE HCL 2 MG TAB.SUBL SL SCH (09:00)
[2017-08-16 12:00] VITALS: BP 120/70
[2017-08-16] MEDS: KETOROLAC TROMETHAMINE 30 MG INJ IM PRN (15:14)
--- NOTE | 2017-08-16 15:27 | NUR ---
PRN medication; Patient is complaining of right shoulder pain rated 9/10 on pain scale. PRN Toradol 30mg IM given on right deltoid. Patient tolerated procedure well. Will continue to monitor patient.
[2017-08-16 16:00] VITALS: BP 127/87
--- NOTE | 2017-08-16 16:05 | NUR ---
Re-assessment; Patient denies further episodes of diarrhea at this time. PRN medication noted to be effective. Addendum: 08/16/17 at 1815 by CK COOPER LVN Assessment time at 1805
--- NOTE | 2017-08-16 16:27 | NUR ---
Re-assessment; Patient denies pain at this time. PRN medication noted to be effective.
--- NOTE | 2017-08-16 17:05 | NUR ---
PRN medication; Patient reported episode of diarrhea. Imodium PO PRN given to prevent further diarrhea. Will continue to monitor patient for effectiveness of medication.
--- NOTE | 2017-08-16 18:26 | NUR ---
PRN medication; Patient appears very anxious, pacing ack and forth in the room. PRN Vistaril 50mg PO given for anxiety. Will continue to monitor patient.
--- NOTE | 2017-08-16 18:30 | NUR ---
End of shift note; Patient is AOX4. Patient remained compliant with treatment plan and medication regime. Medications were effective in reducing withdrawal symptoms. Patient remained afebrile throughout the but continues to be on isolation precautions per MD order. Patient's last COWS score is 5 and last CIWA score is 4. Patient denies any suicidal ideations. All safety measures secured. Met all needs.
--- NOTE | 2017-08-16 19:45 | NUR ---
Start of shift note Received a 22 year old male admitted on 08/11/17 for ETOH/Opiate/Methamphetamine dependence. Patient was placed on a 5 day Ativan and 5 day Subutex taper, no adverse reactions noted. Px has NKA, on regular diet and on Full Code. Px is still on Isolation precautions. Patient is on 1:1 supervision for safety. During the rounds at 1945, px reported severe anxiety, visual hallucinations, mils nausea and sweats. All safety measures secured. Bed on lowest position, side rails up 2x, call light within reach. We'll continue to monitor patient.
[2017-08-16 20:00] VITALS: BP 124/91
[2017-08-16] MEDS: QUETIAPINE FUMARATE 25 MG TABLET PO SCH (20:14)
--- NOTE | 2017-08-16 20:14 | NUR ---
PRN Imodium Px verbalized that he had more than 5x loose BM today. Imodium 2 mg/cap, 1 cap given PO as PRN med. We'll continue to monitor.
[2017-08-16] MEDS: QUETIAPINE FUMARATE 200 MG TABLET PO SCH (20:15)
[2017-08-17] VITALS: BP 120/86
--- NOTE | 2017-08-17 | NUR ---
COWS and CIWA deferred COWS and CIWA deferred due to the px is asleep, to assess if the px is awake per doctor's order. We'll continue to monitor.
[2017-08-17 04:00] VITALS: BP 151/78
[2017-08-17] MEDS: LOPERAMIDE HCL 2 MG CAPSULE PO PRN (06:07)
--- NOTE | 2017-08-17 06:07 | NUR ---
PRN Imodium Px verbalized that he had more than 5x loose BM for the whole shift. Imodium 2 mg/cap, 2 caps given PO as PRN med. Advised to drink more water to replenish lost water. We'll continue to monitor.
--- NOTE | 2017-08-17 07:23 | NUR ---
End of shift note 22 year old male admitted on 08/11/17 for ETOH/Opiate/Methamphetamine dependence. Patient was placed on a 5 day Ativan and 5 day Subutex taper, no adverse reactions noted. Px has NKA, on regular diet and on Full Code. Px is still on Isolation precautions. Patient is on 1:1 supervision for safety. During the shift, px reported severe anxiety, visual hallucinations, mils nausea and sweats. At 2013, Px verbalized that he had more than 5x loose BM today. Imodium 2 mg/cap, 1 cap given PO as PRN med. At 0400, px woke up and wanted to smoke, but due to patio and room restrictions, px was not allowed to go smoke. At 0607, Px verbalized that he had more than 5x loose BM for the whole shift. Imodium 2 mg/cap, 2 caps given PO as PRN med. Advised to drink more water to replenish lost water. Oral intake of 3,400 ml, voided 8x, BM 7x. Slept for 5 hours. All safety measures secured. Bed on lowest position, side rails up 2x, call light within reach. We'll continue to monitor patient.
--- NOTE | 2017-08-17 07:30 | NUR ---
START OF SHIFT Pt 22 y/o male admitted for etoh/ meth/heroin dependence. Pt received in room on bed with eyes closed resting, but easily arousable to name. Pt with 1:1 sitter to monitor for safety. Pt alert and oriented to name, place, and time. Perrla. Skin warm and moist to touch. Bilateral hand tremors noted slightly. Respirations even and unlabored. Pt appears irritable this morning. It was reported that pt slept for 5 hours last night. Bed on lowest position with side rails x 2 up for safety. Call light within reach. No distress noted at this time.
[2017-08-17 08:00] VITALS: BP 137/92
[2017-08-17] MEDS: DOCUSATE SODIUM 250 MG CAPSULE PO SCH (09:00)
[2017-08-17] MEDS ORDERED: LORAZEPAM 1 MG TABLET PO SCH (09:00)
[2017-08-17] MEDS ORDERED: BUPRENORPHINE HCL 2 MG TAB.SUBL SL SCH (09:00)
[2017-08-17] MEDS: CLONIDINE HCL 0.1 MG TABLET PO SCH ×3 (09:15→20:58)
[2017-08-17] MEDS: MULTIVITAMINS,THERAPEUTIC TABLET PO SCH (09:15)
[2017-08-17] MEDS: BACLOFEN 10 MG TABLET PO SCH ×3 (09:15→20:59)
[2017-08-17] MEDS: SERTRALINE HCL 100 MG TABLET PO SCH (09:15)
[2017-08-17] MEDS: THIAMINE HCL 100 MG TABLET PO SCH (09:15)
[2017-08-17] MEDS: FOLIC ACID 1 MG TABLET PO SCH (09:15)
[2017-08-17] MEDS: OLANZAPINE 5 MG TABLET PO SCH ×2 (09:16→16:58)
[2017-08-17] MEDS: GABAPENTIN 300 MG CAPSULE PO SCH ×3 (09:16→20:58)
[2017-08-17] MEDS: OSELTAMIVIR PHOSPHATE 75 MG CAPSULE PO SCH ×2 (09:16→20:58)
[2017-08-17 12:00] VITALS: BP 128/82
[2017-08-17 16:00] VITALS: BP 128/72
[2017-08-17] MEDS ORDERED: IBUP-1955 PO (18:24)
[2017-08-17] MEDS ORDERED: METH-406 PO (18:24)
[2017-08-17] MEDS ORDERED: CLON0.1T14 PO (18:24)
[2017-08-17] MEDS ORDERED: HYDR-3895 PO (18:24)
[2017-08-17] MEDS ORDERED: GABA-534 PO (18:24)
[2017-08-17] MEDS ORDERED: OSEL75CA PO (18:25)
--- NOTE | 2017-08-17 18:27 | NUR ---
END OF SHIFT Pt 22 y/o male admitted for etoh/ meth/ heroin dependence. Pt alert and oriented to name, place, and time. Perrla. Skin warm and moist to touch. Respirations even and unlabored. Pt with periods of agitation throughout the day. Pt with sitter 1:1 to monitor for safety. Pt is on droplet isolation. Pt observed mostly isolative to room throuhout the day. Pt did not attend group activity. Pt was seen by MD today. Pt medication compliant and tolerated well. No ASE noted. Bed on lowest position with side rails x2 up for safety. Call light within reach. No distress noted at this time. Pt is scheduled to be discharged tomorrow.
[2017-08-17 20:00] VITALS: BP 139/75
[2017-08-17] MEDS: QUETIAPINE FUMARATE 25 MG TABLET PO SCH (20:58)
[2017-08-17] MEDS: QUETIAPINE FUMARATE 200 MG TABLET PO SCH (20:58)
--- NOTE | 2017-08-17 22:21 | NUR ---
Start of shift note Received a 22 year old male admitted on 08/11/17 for ETOH/Opiate/Methamphetamine dependence. Patient was placed on a 5 day Ativan and 5 day Subutex taper, no adverse reactions noted. Px has NKA, on regular diet and on Full Code. Px is still on Isolation precautions. Patient is on 1:1 supervision for safety. During the rounds at 1944, px reported severe anxiety, still with visual hallucinations, and sweats. All safety measures secured. Bed on lowest position, side rails up 2x, call light within reach. We'll continue to monitor patient. Addendum: 08/17/17 at 2222 by PROSPER ENGLAND RN Start of shift notes at 1944
[2017-08-18] VITALS: BP 125/63
[2017-08-18 04:00] VITALS: BP 121/67
--- NOTE | 2017-08-18 04:00 | NUR ---
COWS and CIWA deferred COWS and CIWA deferred at 0000 and 0400 due to the px is asleep, to assess if the px is awake per doctor's order. We'll continue to monitor.
--- NOTE | 2017-08-18 06:59 | NUR ---
End of shift note 22 year old male admitted on 08/11/17 for ETOH/Opiate/Methamphetamine dependence. Patient was placed on a 5 day Ativan and 5 day Subutex taper, no adverse reactions noted. Px has NKA, on regular diet and on Full Code. Px is still on Isolation precautions. Patient is on 1:1 supervision for safety. During the shift, px reported severe anxiety, still with visual hallucinations, and sweats. Oral intake of 1 L, voided 2x, No BM. Slept for 7 hours. Last COWS 3, CIWA 4. All safety measures secured. Bed on lowest position, side rails up 2x, call light within reach. We'll continue to monitor patient.
--- NOTE | 2017-08-18 07:29 | NUR ---
START OF SHIFT NOTE Received report from night nurse, 22 year old male admitted for ETOH/Heroin/Meth dependence. Patient has PMH of Anxiety, Depression, Insomnia, Bipolar. Per endorsement pt did not receive any PRN'S, slept for 7 hours, last CIWA-4, COWS-3. Patient received awake,alert and oriented x4. Patient was educated regarding plan of care for the day and medication regimen. Patient scheduled for discharge today. Safety measures in place. Call light with in reach. Will continue to monitor.
[2017-08-18 08:00] VITALS: BP 126/74
[2017-08-18] MEDS: THIAMINE HCL 100 MG TABLET PO SCH (08:57)
[2017-08-18] MEDS: BACLOFEN 10 MG TABLET PO SCH ×2 (08:58→14:08)
[2017-08-18] MEDS: GABAPENTIN 300 MG CAPSULE PO SCH ×2 (08:58→14:08)
[2017-08-18] MEDS: OSELTAMIVIR PHOSPHATE 75 MG CAPSULE PO SCH (08:58)
[2017-08-18] MEDS: FOLIC ACID 1 MG TABLET PO SCH (08:58)
[2017-08-18] MEDS: DOCUSATE SODIUM 250 MG CAPSULE PO SCH (08:58)
[2017-08-18] MEDS: OLANZAPINE 5 MG TABLET PO SCH ×2 (08:58→16:05)
[2017-08-18] MEDS: SERTRALINE HCL 100 MG TABLET PO SCH (08:58)
[2017-08-18] MEDS: MULTIVITAMINS,THERAPEUTIC TABLET PO SCH (08:58)
[2017-08-18] MEDS: CLONIDINE HCL 0.1 MG TABLET PO SCH ×2 (09:03→14:10)
[2017-08-18] MEDS: ACETAMINOPHEN 325 MG TABLET PO PRN (10:22)
--- NOTE | 2017-08-18 10:22 | NUR ---
PRN TYLENOL Patient c/o of headache 12/18, PRN Tylenol 650mg Po was given as ordered. Will cont to monitor and reassess.
--- NOTE | 2017-08-18 11:22 | NUR ---
TYLENOL REASSESSMENT Per pt Tylenol was effective in alleviating his headache1/10.
[2017-08-18 12:00] VITALS: BP 134/77
[2017-08-18 14:10] VITALS: BP 134/77
--- NOTE | 2017-08-18 16:10 | NUR ---
DISCHARGE NOTE Patient is in stable condition. Vital signs WNL,Patient is alert oriented x4, Skin intact warm and dry to touch. Patient denies any SI/HI ideations. All discharge paper work done signed and dated. Patient educated about discharge instructions, Pt verbalized understanding. Patient 's last COWS score was 1 and CIWA was 1. Patient discharged from [facility] on 08/18/17 at 1610. Patient left the building with all of his belongings and prescriptions, medications returned to the pt. has been contracted and notified of Pt's discharge.
== END 2017-08-18 16:40 | disposition other institution (70) | DRG 895 ==
LOC: SRC 16:15
PROVIDERS: ADMIT Internal Medicine; ATTEND Internal Medicine
PROC: HZ2ZZZZ Detoxification Services for Substance Abuse Treatment (ICD-10-PCS; principal; 2017-08-11)
PROC: HZ31ZZZ Individual Counseling for Substance Abuse Treatment, Behavioral (ICD-10-PCS; 2017-08-12)
DX: F10.230 Alcohol dependence with withdrawal, uncomplicated (principal); Z86.74 Personal history of sudden cardiac arrest; I15.9 Secondary hypertension, unspecified; F11.23 Opioid dependence with withdrawal; Y90.9 Presence of alcohol in blood, level not specified; F17.210 Nicotine dependence, cigarettes, uncomplicated; G47.00 Insomnia, unspecified; Z81.1 Family history of alcohol abuse and dependence; Z79.899 Other long term (current) drug therapy; Z59.0 Homelessness; Z59.1 Inadequate housing; K59.03 Drug induced constipation; F90.9 Attention-deficit hyperactivity disorder, unspecified type; F41.9 Anxiety disorder, unspecified; F13.230 Sedative, hypnotic or anxiolytic dependence with withdrawal, uncomplicated; R73.9 Hyperglycemia, unspecified; E87.6 Hypokalemia; F39 Unspecified mood [affective] disorder; Z20.828 Contact with and (suspected) exposure to other viral communicable diseases; R50.9 Fever, unspecified
CPT/HCPCS: 36415; 71045; 80307; 80361; 83605; 83735; 85025; 86403; 86580; 86592; 86705; 86803; 87040; 87070; 87340; 87400; 87806; G0480; J1885; J3411; Q0163